=== PATIENT | male | born 1995 | race Caucasian/White ===

== ENCOUNTER 2017-09-23 12:48 | Emergency (ER) | payer OTHER ==
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
[2017-09-23] MEDS ORDERED: cefTRIAXone 1 GM VIAL IM STA (15:11)
[2017-09-23] MEDS ORDERED: LIDOCAINE 1% 2 ML VIAL SUBQ ONE (15:11)
--- NOTE | 2017-09-23 15:20 | CT Report ---
Procedure Date: 09/23/2017 Accession Number: [id number] / [id number] Procedure: CT - Facial Bones W/O CPT Code: FULL RESULT: EXAM: CT MAXILLOFACIAL WITHOUT CONTRAST EXAM DATE: 09/23/2017 02:52 PM. CLINICAL HISTORY: Right periorbital swelling/trauma. COMPARISONS: None. TECHNIQUE: Thin-section axial images were acquired of the face without contrast. Post-processing: Coronal and sagittal reformats. Other: None. In accordance with CT protocol optimization, one or more of the following dose reduction techniques were utilized for this exam: automated exposure control, adjustment of mA and/or KV based on patient size, or use of iterative reconstructive technique. FINDINGS: Soft Tissue: There is right periorbital subcutaneous tissue gas. There is a small amount of gas in the posterior lateral right orbit. No soft tissue foreign body. Orbits: Both globes appear normal in density and contour. Bones: There is a subtle step-off suspicious for nondisplaced fracture of the mid right orbital floor. No other orbital or facial fracture demonstrated. Temporomandibular Joints: The temporomandibular joints are symmetric and normally located. Sinuses: There is bilateral maxillary sinus mucosal thickening. There is bilateral frontal and ethmoid sinus mucosal thickening. Other: None. IMPRESSION: 1. Suspicious for nondisplaced mid right orbital floor fracture at the inferior orbital canal with right periorbital soft tissue gas. 2. Inflammatory disease of the paranasal sinuses. [facility]
[2017-09-23 16:12] VITALS: BP 131/73
== END 2017-09-23 16:08 | disposition home or self-care (01) ==
LOC: ED 12:48
DX: S02.31XA Fracture of orbital floor, right side, initial encounter for closed fracture (principal); S20.319A Abrasion of unspecified front wall of thorax, initial encounter; S00.81XA Abrasion of other part of head, initial encounter; W22.09XA Striking against other stationary object, initial encounter
CPT/HCPCS: 70486; 96372; 99283